=== PATIENT | male | born 1970 | race Caucasian/White ===

== ENCOUNTER → 2019-12-09 14:10 | Outpatient (BNVA) | payer BC, SELFPAY | PROVIDERS: Visit Provider Nurse Practitioner | DX: M79.671 Pain in right foot (principal) | CPT/HCPCS: 73630 ==

== ENCOUNTER → 2020-08-31 10:50 | Outpatient (BNVA) | payer BC, SELFPAY | PROVIDERS: Visit Provider Nurse Practitioner | DX: Z20.2 Contact with and (suspected) exposure to infections with a predominantly sexual mode of transmission (principal); R30.0 Dysuria | CPT/HCPCS: 81000; 87086; 87491; 87591 ==

== ENCOUNTER → 2020-12-09 14:56 | Outpatient (BNVA) | payer BC, OTHER, SELFPAY | PROVIDERS: PCP Family Medicine; Visit Provider Family Medicine | DX: Z02.6 Encounter for examination for insurance purposes (principal); N40.0 Benign prostatic hyperplasia without lower urinary tract symptoms; E78.5 Hyperlipidemia, unspecified; K40.90 Unilateral inguinal hernia, without obstruction or gangrene, not specified as recurrent | CPT/HCPCS: 80053; 80061; 80307; 84443 ==

== ENCOUNTER → 2020-12-10 12:09 | Outpatient (BNVA) | payer BC, OTHER, SELFPAY | PROVIDERS: PCP Family Medicine; Visit Provider Family Medicine | DX: Z20.822 Contact with and (suspected) exposure to COVID-19 (principal); N40.0 Benign prostatic hyperplasia without lower urinary tract symptoms; E78.5 Hyperlipidemia, unspecified; K40.90 Unilateral inguinal hernia, without obstruction or gangrene, not specified as recurrent | CPT/HCPCS: 87635 ==

== ENCOUNTER → 2020-12-26 13:22 | Outpatient (BNVA) | payer OTHER, SELFPAY | PROVIDERS: PCP Family Medicine; Visit Provider Surgery | DX: Z20.822 Contact with and (suspected) exposure to COVID-19 (principal); K40.90 Unilateral inguinal hernia, without obstruction or gangrene, not specified as recurrent | CPT/HCPCS: 87635 ==

== ENCOUNTER 2020-12-27 10:36 | Outpatient (CLI) | payer OTHER, SELFPAY ==
--- NOTE | 2020-12-27 11:00 | CT_ITS ---
WS: [id number] CT ABDOMEN PELVIS TECHNIQUE: Noncontrast CT of the abdomen and pelvis with coronal and sagittal reformatted images. CLINICAL INFORMATION: K40.90 - Unilateral inguinal hernia, without obstruction ... COMPARISON: None. DLP: 773.[address] scans at [facility] use at least one of these dose optimization techniques: automated e xposure control; mA and/or kV adjustment per patient size (includes targeted exams where dose is matc hed to clinical indication); or iterative reconstruction. FINDINGS: Slight anterolisthesis L5 on S1 with bilateral spondylolysis. Bilateral fat-containing inguinal herni as right greater than left. Slight outpouching of the right ventral lateral bladder slightly extends into the right inguinal hernia. No herniated bowel. Small fat-containing umbilical hernia. Lung bases are well aerated. Noncontrast liver is normal. Normal noncontrast spleen. Tiny esophageal hiatal hernia. Adrenal glands are normal. No hydronephrosis in either kidney. Noncontrast pancreas ap pears unremarkable. Gallbladder is decompressed. Normal caliber abdominal aorta. Prostate calcification. Sigmoid diverticulosis. No evidence of acute diverticulitis. No abdominal or pelvic lymphadenopathy. CT/CT abdomen pelvis wo con [id number] IMPRESSION: 1. Bilateral fat-containing inguinal hernias right greater than left. Right ve ntral lateral bladder outpouching extends into the right proximal inguinal mani ia. No herniated bowel. 2. Small fat-containing umbilical hernia. 3. Slight anterolisthesis L5 on S1 with bilateral spondylolysis.
== END 2020-12-27 10:37 | disposition home or self-care (01) ==
PROVIDERS: PCP Family Medicine; Visit Provider Family Medicine
DX: K40.90 Unilateral inguinal hernia, without obstruction or gangrene, not specified as recurrent (principal); K40.20 Bilateral inguinal hernia, without obstruction or gangrene, not specified as recurrent; K42.9 Umbilical hernia without obstruction or gangrene
CPT/HCPCS: 74176

== ENCOUNTER 2020-12-31 11:13 | Day surgery (SDC) | payer OTHER, SELFPAY ==
[2020-12-27 16:08] VITALS: BMI 23.6
[2020-12-31] VITALS (10 sets, daily range): BP systolic 130–173; BP diastolic 80–104; PULSE 48–89; RESP 14–18; TEMP 36.4–36.8; O2SAT 92–96
[2020-12-31] MEDS: sodium chloride 0.9% 1,000 ML 30 ML IV (11:46)
[2020-12-31] MEDS: acetaminophen 1,000 MG/100 ML PIGGYBACK 400 MG IV (11:47)
--- NOTE | 2020-12-31 12:20 | W.PM.OPSUD ---
Surgery/Procedure H&P Update DATE OF PROCEDURE: December 31, 2020 DATE H&P PERFORMED: 12/12/20 H&P UPDATE INFORMATION: I have reviewed H&P completed within last 30 days, I have examined patient prior to procedure and No changes to prior documentation PREOP DIAGNOSIS: Right inguinal Hernia PRIMARY INDICATION FOR PROCEDURE: The same PLANNED PROCEDURE: Operation Date: 12/31/20 12:45 Proposed Procedures p Laparoscopic Inguinal Hernia Repair w/Mesh 36877 K40.90(Right) - Cory Joshi MD
--- NOTE | 2020-12-31 12:37 | ANES.PREANE2 ---
Pre-Anesthetic Assessment Pre-Anesthetic Assessment: Height/Weight: Height 1.75 m Weight 72.575 kg Temp Pulse Resp BP Pulse Ox 97.8 F 89 16 138/86 96 12/31/20 11:34 12/31/20 11:34 12/31/20 11:34 12/31/20 11:34 12/31/20 11:34 Preop Diagnosis: Right inguinal Hernia Proposed Procedure: Operation Date: 12/31/20 12:45 Proposed Procedures p Laparoscopic Inguinal Hernia Repair w/Mesh 34358 K40.90(Right) - Cory Joshi MD Familial anesthetic complications: None Was Beta Arelis taken within 24 hours: N/A Was Clonidine taken within 24 hours: N/A Last intake: Intake Last Liquid Date 12/30/20 Last Liquid Time 20:30 Last Solid Date 12/30/20 Last Solid Time 20:30 Social: Social History: Tobacco and No alcohol Exam: Pre-Anes Outpt Exam: alert, oriented x 3, clear to auscultation bilaterally and regular rate & rhythm Airway: Cervical ROM: WNL MP: 3 Dentition: False Pulmonary: Pulmonary: Asthma Comments: smoker's cough' GI: GI: GERD Metabolic: Metabolic: Hyperlipidemia Anesthetic Plan: ASA status: 2 Anesthesia: General Risk of > 500 ml blood loss (7ml/kg in children): No Meds/Allergies Current Medications: Current Medications Generic Name Dose Route Start Last Admin Trade Name Freq PRN Reason Stop Dose Admin Sodium Chloride 1,000 mls @ 30 ml s/hr 12/31/20 11:30 12/31/20 11:46 Sodium Chloride 0.9% IV 01/01/21 11:29 30 mls/hr .Q24H DAVID Administration PFSH Anesthesia PFSH: Social History Smoking and tobacco status: current every day smoker Data Anesthesia Cardiac Studies: No Data to Display
--- NOTE | 2020-12-31 14:15 | P.OP_ITS ---
Operative Report Date of procedure: December 31, 2020 Pre-op Diagnosis: Right inguinal Hernia Post-op diagnosis: same Post-op Findings: Right inguinal direct and indirect components Incidental finding of intraperitoneal left lower quadrant mass 2 x 2 cm encased onto the peritoneal surface of the abdominal wall and appendices epiploicae of the closed by sigmoid colon Procedure Done: Laparoscopic right inguinal hernia repair with mesh placement 3D large mesh Excision of intraperitoneal mass 3x3 cm Implants: 3D large mesh of the right groin Specimens removed/disposition: Left lower quadrant abdominal mass Surgeon: Cory Joshi Test Operator: Surgical techs Lakisha Tracy, surgical corsetier student Lakisha Circulating nurse Verna Anesthesia: General (GET[employer] manufacturing quality engineer Olivia) Estimated blood loss (mL): 5 IV fluids (mL): 500 Condition: stable Disposition: same day Procedure: Transabdominal preperitoneal (FEMI) approach. Patient was identified in the holding area ,patient was transferred to the operating room where he was placed in supine position, with both arms were tucked, antibiotic was given with induction, endotracheal tube was placed per anesthesia, Guerrero catheter was inserted by the circulating nurse and revealed clear urine, prep and drape of the abdomen was done under the usual sterile technique as well as the scrotal area. Time-out was done verifying the patient's name/date of /planned procedure destination after the procedure, all were in agreement. SCDs confirmed to be functioning, preoperative antibiotics administered per protocol, and beta heather protocol was confirmed. A vertical skin incision of 1.2 cm was made with 11 blade knife through the supra umbilicus , incision was carried down to the subcutaneous tissue and deepened to identify the anterior fascia, two stay sutures were applied to the fascia, and safe entrance to the abdominal cavity was achieved, a Morales trocar technique safe entry to the abdominal cavity was achieved verified by using 10 mm zero degree laparoscopy, switched to a 30 degrees scope,low flow followed by a higher flow of CO2 gas up to 15 mmHg. There was no evidence of injury to intra-abdominal structures from the port entry, attention was deviated to both groins, there was a large direct hernia defect with herniation of peritoneum and preperitoneal fat was noted on the right side, two 5 mm ports were placed on the right and left lateral aspect of the abdomen slightly above the level of the umbilicus, under direct visualization, anesthesia 2% lidocaine local was injected at all trocar sites prior to incisions. The peritoneum above the level of the iliopubic tract was incised to the right of the midline and dissection was performed to create a preperitoneal space medial to lateral aspect up to anterior superior iliac spine on the right side. Dissection was continued onto the medial aspect and the right spermatic was identified, there was evidence of direct inguinal hernia .the sac was dissected. As it applied medial to the right inferior epigastric vessels/ dissection was performed to clear the space lateral to the spermatic cord and dorsomedial to it, the hernia sac was reduced and retracted far back, so there was an evidence of a small indirect inguinal hernia that was dissected. Then a large right 3-D mesh was rolled and placed into the abdominal cavity through the Morales port, after the mesh was introduced it was positioned to lie in the myopectineal orifice and the mesh was unrolled and this covered the entire my myope pectineal orifice. Intra-abdominal pressure was dropped to 12 mmHg to help placement of the mesh good position On the lateral aspect of the mesh extended up to the anterior superior iliac spine on the medial aspect the mesh crossed the midline onto the left side, then using absorbable tacks, placed above the iliopubic tract onto the rectus abdominis muscle on the medial aspect and also to the lateral abdominal wall superomedial to the sacroiliac spine, then the mesh was also anchored to the pubis and the Feliberto's ligament inferiorly. The peritoneal leaflets were then brought together to cover the mesh and isolated from the other viscera, extra tacks were used to secure the peritoneum in good position. Incidental finding of left lower quadrant intra-abdominal peritoneal mass attached to the posterior aspect of the left lower abdominal domain tethered with the appendices epiploicae of the sigmoid colon but from the colon, that was dissected carefully using Enseal device and laparoscopic scissors, and was delivered and sent separately in permanent pathology Final look demonstrated good hemostasis and the mesh in good position A total of 20 mL Exparel 40 ml Normal saline 20 ml bupivacaine 0.25% were injected at the remaining of the tacks site and trocar sites as well Final look demonstrated good hemostasis.Then the fascia on the supra umbilical fascial defect was closed using #1 PDS sutures under direct visualization using fascial closure device Baron Reynolds.All ports were removed,then the abdomen was desufflated. All skin incisions were closed with 4-0 Monocryl subcuticular suture and Dermabond was applied. The patient tolerated the procedure well, Guerrero catheter was taken out ,got extubated and was transferred to the recovery area in stable condition All counts of instruments, needles and sponges were completed I was present for the whole entire procedure
[2020-12-31] MEDS: HYDROcodone-acetaminophen 5-325 mg Tablet 1 TAB PO (15:10)
[2020-12-31] MEDS: morphine 4 mg/mL SDV 1 mL IVP (15:16)
--- NOTE | 2020-12-31 15:38 | ANE.PACU2 ---
Inpatient post-anesthesia follow up: Airway intact: Yes Vital signs: Temperature 97.6 F Pulse Rate 54 Respiratory Rate 16 Blood Pressure 130/82 Pulse Oximetry 94 Oxygen Delivery Me thod Room Air Oxygen Flow Rate Fraction of Inspir ed Oxygen Hydration adequate: Yes Nausea and vomiting: No Pain level: 2 Mental status: Baseline
== END 2020-12-31 16:20 | disposition home or self-care (01) ==
PROVIDERS: PCP Family Medicine; Visit Provider Surgery
PROC: (CPT 49650; principal; 2020-12-31 12:35)
DX: K40.90 Unilateral inguinal hernia, without obstruction or gangrene, not specified as recurrent (principal); D17.79 Benign lipomatous neoplasm of other sites; K21.9 Gastro-esophageal reflux disease without esophagitis; E78.5 Hyperlipidemia, unspecified; F17.210 Nicotine dependence, cigarettes, uncomplicated
CPT/HCPCS: 49203; 49505; 88307; 96365; C1781; C9290; J1100; J1170; J2270; J2405; J2704; J2710; J3010; J3490; J7030